=== PATIENT | female | born 1950 ===

== ENCOUNTER 2020-03-26 08:49 | Inpatient (IN) | payer OTHER ==
[~2020-03-26] VITALS: Ht 149.9 cm; Wt 43.5 kg
[2020-03-28] MEDS ORDERED: PROTONIX40 MG PO (15:09)
== END 2020-04-06 16:49 | disposition home or self-care (01) | DRG 329 ==
LOC: ADM 03-28 10:00 → EDSTATUS 03-28 10:00 → O/R 03-30 05:45 → SURH 03-30 05:45 → RECOVERY 03-30 07:00 → SURH 03-30 11:36
PROVIDERS: ADMIT Colon & Rectal Surgery; ATTEND Colon & Rectal Surgery
PROC: 0DBN4ZZ Excision of Sigmoid Colon, Percutaneous Endoscopic Approach (ICD-10-PCS; 2020-03-30)
PROC: 4A19X1Z Monitoring of Respiratory Capacity, External Approach (ICD-10-PCS; 2020-03-30)
PROC: 0DTP4ZZ Resection of Rectum, Percutaneous Endoscopic Approach (ICD-10-PCS; principal; 2020-03-30 07:00)
DX: K57.32 Diverticulitis of large intestine without perforation or abscess without bleeding (principal); J18.9 Pneumonia, unspecified organism; J98.11 Atelectasis; D62 Acute posthemorrhagic anemia

== ENCOUNTER 2021-06-09 06:57 | Day surgery (SDC) | payer OTHER ==
[~2021-06-09 06:57] MED LIST: PROTONIX40 MG PO
== END 2021-06-09 12:15 | disposition home or self-care (01) ==
LOC: AMB-ENDOS 06:57
PROVIDERS: ATTEND Colon & Rectal Surgery
DX: K52.89 Other specified noninfective gastroenteritis and colitis (principal); K62.4 Stenosis of anus and rectum; K64.0 First degree hemorrhoids; Z20.822 Contact with and (suspected) exposure to COVID-19